=== PATIENT | female | born 1990 | race Caucasian/White ===

== ENCOUNTER 2019-05-26 07:47 | Emergency (ER) | payer MEDICAID ==
[~2019-05-26] VITALS: Ht 154.9 cm; Wt 61.7 kg
[2019-05-26 07:51] VITALS: BP_SYST 132
[2019-05-26 08:11] VITALS: BP_SYST 132
== END 2019-05-26 08:11 | disposition home or self-care (01) ==
LOC: SED 07:47
DX: T78.49XA Other allergy, initial encounter (principal); X58.XXXA Exposure to other specified factors, initial encounter
CPT/HCPCS: 99283

== ENCOUNTER 2021-09-27 13:30 | Observation (INO) | payer OTHER, MEDICAID ==
[~2021-09-27] VITALS: Ht 157.5 cm; Wt 72.6 kg
== END 2021-09-27 15:00 | disposition home or self-care (01) ==
LOC: SPU 13:30 → UNDOADMOB 14:02
PROVIDERS: ADMIT Obstetrics & Gynecology; ATTEND Obstetrics & Gynecology
DX: O26.893 Other specified pregnancy related conditions, third trimester (principal); R10.9 Unspecified abdominal pain; Z3A.34 34 weeks gestation of pregnancy
CPT/HCPCS: G0378; G0379